=== PATIENT | male | born 1955 | race Caucasian/White ===

== ENCOUNTER 2018-09-05 17:19 | Emergency (ER) | payer BC ==
[2018-09-05 18:02] LABS: HEMATOCRIT 46.4 % (42.0-52.0); HEMOGLOBIN 14.8 gm/dl (14.0-18.0); MEAN CELL VOLUME 93.7 fl (81-97); MEAN CORPUSCULAR HEMOGLOBIN 29.9 pg (27-33); MEAN CORPUSCULAR HGB CONC 31.9 g/dl (32-36); MEAN PLATELET VOLUME 11.7 fl (7.4-10.4); PLATELET COUNT 249 K/uL (130-400); RED BLOOD COUNT 4.95 M/uL (4.40-5.70); WHITE BLOOD COUNT W/O DIFF 19.9 K/uL (4.2-12.2)
[2018-09-05 18:13] LABS: URINE APPEARANCE CLEAR; URINE BILIRUBIN NEGATIVE (NEGATIVE); URINE GLUCOSE (UA) NEGATIVE (NEGATIVE); URINE KETONE 15 mg/dL (NEGATIVE)
[2018-09-05 18:13] LABS: BLOOD UREA NITROGEN 9 mg/dL (8-23); CREATININE 0.9 mg/dL (0.7-1.2); EST GLOMERULAR FILTRATION RATE > 60 mL/min
[2018-09-05 18:14] LABS: LIPASE 14 U/L (13-60); TOTAL PROTEIN 7.9 g/dL (6.6-8.7)
[2018-09-05 18:14] LABS: URINE BLOOD TRACE-I (NEGATIVE); URINE LEUKOCYTE ESTERASE TRACE (NEGATIVE); URINE PROTEIN TRACE (NEGATIVE)
[2018-09-05 18:16] LABS: GLUCOSE,RANDOM 128 mg/dL (74-109)
[2018-09-05 18:18] LABS: ALT/SGPT 17 U/L (<41); BILIRUBIN,DIRECT 0.2 mg/dL (0-0.3)
[2018-09-05 18:19] LABS: ALBUMIN 4.1 g/dL (4.0-5.0); ALKALINE PHOSPHATASE 65 U/L (40-129); AST/SGOT 14 U/L (10.0-50.0)
[2018-09-05 18:21] LABS: URINE COLOR ORANGE
[2018-09-05 18:22] LABS: URINE EPITHELIAL CELLS NONE SEEN (FEW); URINE RBC 0 - 2 (NONE SEEN); URINE WBC 0 - 2 (0-2/hpf)
--- NOTE | 2018-09-05 19:00 | Emergency Department Record ---
History of Present Illness - General Chief Complaint: Abdominal Pain Stated Complaint: ABD PAIN Time Seen by Provider: 09/05/18 17:46 Source: Patient Mode of Arrival: Ambulatory Limitations: No limitations - History of Present Illness Initial Comments: pt has had ap since yesterday in the lower abdomen. he has no v/c/d. walking makes worse. he has not been to a dr in 7 years Complaint: Abdominal pain Onset/Timin -: Days(s) Location: LLQ, RLQ Radiation: None Quality: Sharp Consistency: Constant Improves With: Nothing Worsens With: Nothing Associated Symptoms: Chills, Nausea - Related Data Home Medications Medication Instructions Recorded Confirmed Last Taken No Home Med [NO HOME MEDS] 09/05/18 09/05/18 Unknown Allergies Allergy/AdvReac Type Severity Reaction Status Date / Time procaine [From Novocain] Allergy PT UNSURE Verified 09/05/18 17:42 OF REACTION Travel Screening - Travel/Exposure Within Last 30 Days Have you traveled within the last 30 days?: No Review of Systems Reviewed: No additional complaints except as noted below Constitutional: Reports: As per HPI. Denies: Chills, Fever, Malaise, Night sweats, Weakness, Weight change Eyes: Reports: As per HPI. Denies: Eye discharge, Eye pain, Photophobia, Vision change ENT: Reports: As per HPI. Denies: Congestion, Dental pain, Ear pain, Epistaxis, Hearing loss, Throat pain Respiratory: Reports: As per HPI. Denies: Cough, Dyspnea, Hemoptysis, Stridor, Wheezes Cardiovascular: Reports: As per HPI. Denies: Arrhythmia, Chest pain, Dyspnea on exertion, Edema, Murmurs, Orthopnea, Palpitations, Paroxysmal nocturnal dyspnea, Rheumatic Fever, Syncope Endocrine: Reports: As per HPI. Denies: Fatigue, Heat or cold intolerance, Polydipsia, Polyuria Gastrointestinal: Reports: As per HPI, Abdominal pain, Nausea. Denies: Constipation, Diarrhea, Hematemesis, Hematochezia, Melena, Vomiting Genitourinary: Reports: As per HPI. Denies: Dysuria, Frequency, Hematuria, Incontinence, Retention, Testicular pain, Testicular mass, Urgency Musculoskeletal: Reports: As per HPI. Denies: Arthralgia, Back pain, Gout, Joint swelling, Myalgia, Neck pain Skin: Reports: As per HPI. Denies: Bruising, Change in color, Change in hair/nails, Lesions, Pruritus, Rash Neurological: Reports: As per HPI. Denies: Abnormal gait, Confusion, Headache, Numbness, Paresthesias, Seizure, Tingling, Tremors, Vertigo, Weakness Psychiatric: Reports: As per HPI. Denies: Anxiety, Auditory hallucinations, Depression, Homicidal thoughts, Suicidal thoughts, Visual hallucinations Hematological/Lymphatic: Reports: As per HPI. Denies: Anemia, Blood Clots, Easy bleeding, Easy bruising, Swollen glands Past Medical History - SOCIAL HISTORY Smoking Status: Never smoker Alcohol Use: None Drug Use: None - RESPIRATORY Hx Respiratory Disorders: No - CARDIOVASCULAR Hx Cardio Disorders: No - NEURO Hx Neuro Disorders: No - GI Hx GI Disorders: No - Hx Genitourinary Disorders: No - ENDOCRINE Hx Endocrine Disorders: No - MUSCULOSKELETAL Hx Musculoskeletal Disorders: No - PSYCH Hx Psych Problems: No - HEMATOLOGY/ONCOLOGY Hx Hematology/Oncology Disorders: No Family Medical History Any Significant Family History?: Yes Hx Heart Disease: Grandparents Physical Exam - General General Appearance: Alert, Oriented x3, Cooperative, Mild distress - Head Head exam: Normal inspection - Eye Eye exam: Normal appearance, PERRL, EOMI Pupils: Normal accommodation - ENT ENT exam: Normal exam, Mucous membranes moist, Normal external ear exam, Normal orophraynx Ear exam: Normal external inspection. negative: External canal tenderness Nasal Exam: Normal inspection. negative: Discharge, Sinus tenderness Mouth exam: Normal external inspection, Tongue normal Teeth exam: Normal inspection. negative: Dental caries Throat exam: Normal inspection. negative: Tonsillar erythema, Tonsillar exudate - Neck Neck exam: Normal inspection, Full ROM. negative: Tenderness - Respiratory Respiratory exam: Normal lung sounds bilaterally. negative: Respiratory distress - Cardiovascular Cardiovascular Exam: Normal rhythm, Normal heart sounds, Tachycardia - GI/Abdominal GI/Abdominal exam: Soft, Normal bowel sounds, Tenderness (llq) - Rectal Rectal exam: Deferred - exam: Deferred - Extremities Extremities exam: Normal inspection, Full ROM, Normal capillary refill. negative: Tenderness - Back Back exam: Reports: Normal inspection, Full ROM. Denies: Muscle spasm, Rash noted, Tenderness - Neurological Neurological exam: Alert, CN II-XII intact, Normal gait, Oriented X3 - Psychiatric Psychiatric exam: Normal affect, Normal mood - Skin Skin exam: Dry, Intact, Normal color, Warm Course Vital Signs 09/05/18 17:35 Temperature 100.3 F H Pulse Rate 106 H Respiratory 20 Rate Blood Pressure 147/107 Pulse Ox 95 Medical Decision Making - Lab Data Result diagrams: 09/05/18 17:43 09/05/18 17:43 Lab Results 09/05/18 09/05/18 09/05/18 Range/Units 17:43 17:43 17:43 WBC 19.9 H (4.2-12.2) K/uL RBC 4.95 (4.40-5.70) M/uL Hgb 14.8 (14.0-18.0) gm/dl Hct 46.4 (42.0-52.0) % MCV 93.7 (81-97) fl MCH 29.9 (27-33) pg MCHC 31.9 L (32-36) g/dl RDW 13.0 (11.5-14.5) % Plt Count 249 (130-400) K/uL MPV 11.7 H (7.4-10.4) fl Neutrophils % 84.0 H (47-80) % Eosinophils % Not Reportable Basophils % Not Reportable Absolute Neutrophils Not Reportable Lymphocytes 9.0 L (16-45) % Monocytes 7.0 (0-9) % Eosinophil Count 1.0 (0-6) % Sodium 135 L (136-145) mmol/L Potassium 4.3 (3.4-4.5) mmol/L Chloride 96 L (98-107) mmol/L Carbon Dioxide 25.0 (22-29) mmol/L Anion Gap 14.0 (7-16) BUN 9 (8-23) mg/dL Creatinine 0.9 (0.7-1.2) mg/dL Estimated GFR > 60 mL/min Random Glucose 128 H (74-109) mg/dL Calcium 9.0 (8.8-10.2) mg/dL Total Bilirubin 1.00 (0.2-1.0) mg/dL Direct Bilirubin 0.2 (0-0.3) mg/dL AST 14 (10.0-50.0) U/L ALT 17 (<41) U/L Alkaline Phosphatase 65 (40-129) U/L Total Protein 7.9 (6.6-8.7) g/dL Albumin 4.1 (4.0-5.0) g/dL Lipase 14 (13-60) U/L PSA Screen 1.48 (0.0-4.1) ng/mL Urine Color Urine Appearance Urine pH (5.0-8.0) Ur Specific [place] (1.002-1.030) Urine Protein (NEGATIVE) Urine Glucose (UA) (NEGATIVE) Urine Ketones (NEGATIVE) Urine Blood (NEGATIVE) Urine Nitrite (NEGATIVE) Urine Bilirubin (NEGATIVE) Urine Urobilinogen (0.20 - 1.00) E.U./dL Ur Leukocyte Esterase (NEGATIVE) Urine RBC (NONE SEEN) Urine WBC (0-2/hpf) Ur Epithelial Cells (FEW) 09/05/18 Range/Units 18:09 WBC (4.2-12.2) K/uL RBC (4.40-5.70) M/uL Hgb (14.0-18.0) gm/dl Hct (42.0-52.0) % MCV (81-97) fl MCH (27-33) pg MCHC (32-36) g/dl RDW (11.5-14.5) % Plt Count (130-400) K/uL MPV (7.4-10.4) fl Neutrophils % (47-80) % Eosinophils % Basophils % Absolute Neutrophils Lymphocytes (16-45) % Monocytes (0-9) % Eosinophil Count (0-6) % Sodium (136-145) mmol/L Potassium (3.4-4.5) mmol/L Chloride (98-107) mmol/L Carbon Dioxide (22-29) mmol/L Anion Gap (7-16) BUN (8-23) mg/dL Creatinine (0.7-1.2) mg/dL Estimated GFR mL/min Random Glucose (74-109) mg/dL Calcium (8.8-10.2) mg/dL Total Bilirubin (0.2-1.0) mg/dL Direct Bilirubin (0-0.3) mg/dL AST (10.0-50.0) U/L ALT (<41) U/L Alkaline Phosphatase (40-129) U/L Total Protein (6.6-8.7) g/dL Albumin (4.0-5.0) g/dL Lipase (13-60) U/L PSA Screen (0.0-4.1) ng/mL Urine Color [place] H Urine Appearance Clear Urine pH 6.0 (5.0-8.0) Ur Specific [place] 1.015 (1.002-1.030) Urine Protein Trace H (NEGATIVE) Urine Glucose (UA) Negative (NEGATIVE) Urine Ketones 15 mg/dl H (NEGATIVE) Urine Blood Trace-i (NEGATIVE) Urine Nitrite (NEGATIVE) Urine Bilirubin Negative (NEGATIVE) Urine Urobilinogen 2.0 H (0.20 - 1.00) E.U./dL Ur Leukocyte Esterase Trace H (NEGATIVE) Urine RBC 0 - 2 (NONE SEEN) Urine WBC 0 - 2 (0-2/hpf) Ur Epithelial Cells None seen (FEW) Disposition Disposition: Transfer Clinical Impression: Diverticulitis Disposition: Acute Care Hospital Transfer Transfer To: [facility] Reason For Transfer: needs surgeon Accepting Physician: colton isaacs and irais Time Discussed w/Accepting Physician: 19:35 Forms: Patient Portal Access Quality - Quality Measures Quality Measures: N/A - Blood Pressure Screening Does Patient Have Any of the Following: No Blood Pressure Classification: Hypertensive Reading Systolic Measurement: 147 Diastolic Measurement: 107 Screening for High Blood Pressure: < First Hypertensive BP, F/U Documented > [G8950] First Hypertensive Follow-up Interventions: Follow-up with rescreen GT 1 day and LT 4 weeks.
[2018-09-05] MEDS ORDERED: METRONIDAZOLE IVPB 500 MG/100 ML BAG IVPB ONE (19:14)
[2018-09-05] MEDS ORDERED: CIPROFLOXACIN LACTATE/D5W 400 MG/200 ML BAG IVPB ONE (19:14)
[2018-09-05] MEDS ORDERED: ONDANSETRON HCL IV 4 MG/2 ML VIAL IVP ONE (19:23)
[2018-09-05] MEDS ORDERED: HYDROMORPHONE HCL 2 MG/ML VIAL IVP ONE (19:23)
--- NOTE | 2018-09-07 05:55 | CT SCAN REPORT ---
EXAM: CT SCAN ABDOMEN/PELVIS WO CONTRAST HISTORY: LEFT LOWER QUADRANT ABDOMINAL PAIN. TECHNIQUE: Standard CT imaging of the abdomen and pelvis without contrast. COMPARISON: None. FINDINGS: Minimal atelectasis at the lung bases. There is a 4 mm fissural nodule at the right lung base. The liver is diffusely hypodense suggesting fatty infiltration. No calcified gallstones. The common bile duct is not dilated. The pancreas, spleen, and adrenal glands are unremarkable. No nephrolithiasis or hydronephrosis. There is colonic diverticulosis with marked pericolonic fat stranding at the sigmoid colon with underlying sigmoid wall thickening suggesting acute diverticulitis. Evaluation of the thickened sigmoid colon is suboptimal without intravenous contrast. No discrete free fluid or free air. No small bowel dilatation. The appendix is normal. Multiple nonenlarged retroperitoneal lymph nodes. IMPRESSION: 1. EXTENSIVE INFLAMMATION WIT SIGMOID WALL THICKENING LIKELY ON THE BASIS OF ACUTE DIVERTICULITIS. NO GROSS PERFORATION. 2. A 4 MM FISSURAL NODULE AT THE RIGHT LUNG BASE, WHICH COULD BE FOLLOWED WITH LOW-DOSE CHEST CT IN 12 MONTHS IF THE PATIENT IS HIGH RISK SUCH WITH THE HISTORY OF SMOKING. 3. FATTY INFILTRATION OF THE LIVER. 4. SMALL FAT-CONTAINING UMBILICAL HERNIA. JOB NUMBER: [id number] [facility]
== END 2018-09-05 22:25 | disposition short-term general hospital (02) ==
LOC: ER 17:19
DX: K57.32 Diverticulitis of large intestine without perforation or abscess without bleeding (principal)
CPT/HCPCS: 74176; 80048; 80076; 81001; 83690; 85027; 96365; 96366; 96375; 99285; G0103; J2405

== ENCOUNTER 2019-01-01 09:19 | Day surgery (SDC) | payer BC ==
[2019-01-01] MEDS ORDERED: LIDOCAINE 2% MDV (20MG/ML) 20ML VIAL IV ONE (09:20)
[2019-01-01] MEDS ORDERED: PROPOFOL 10 MG/ML VIAL IV ONE (09:20)
--- NOTE | 2019-01-02 06:02 | Operative Note ---
OPERATION: COLONOSCOPY to the cecum and terminal ileum. INDICATION: Colorectal cancer screening. This is the patient's first colonoscopy. ANESTHESIA: Intravenous sedation was administered by the department of anesthesiology and included Diprivan titrated to effect. PROCEDURE: Following informed consent from this alert individual including a discussion of the risks and benefits of the procedure and an opportunity for the patient to ask questions, the patient was in the left lateral decubitus position. A digital rectal examination was performed. No abnormalities were noted. Following this, the Olympus [id number] video colonoscope was inserted into the rectum without resistance. The rectal mucosa had a normal appearance with normal folds and distensibility. The sigmoid colon demonstrated scattered diverticula which extended up into the left colon, into the descending colon as well. The colonoscope was advanced into the right colon with some difficulty due to some tortuosity of the colon. With abdominal pressure support, the cecum was reached by identifying the appendiceal orifice and ultimately entering the terminal ileum. The terminal ileum appeared to be endoscopically normal as did the cecum. The colon preparation overall was good. From this point, the colonoscope was then slowly withdrawn. It was difficult to well evaluate the proximal ascending colon due to redundancy. However, as best visualized, no mucosal changes were appreciated in the entire right colon. The transverse colon was normal. Descending colon and sigmoid colon demonstrated diverticulosis. Retroflexion in the rectum was then endoscopically unremarkable. The instrument was straightened and removed. The patient tolerated the procedure well and was returned to the recovery area in stable condition. IMPRESSION: 1. Somewhat tortuous colon. 2. Normal terminal ileum. 3. Left colonic diverticulosis. 4. No polyps noted. RECOMMENDATIONS: The patient was advised to have recheck colonoscopy in 10 years' time or sooner if problems arise. Followup will otherwise be with Ike Norman MD. As always, thank you for allowing me to participate in the care of your patient. SONU
== END 2019-01-01 11:15 | disposition home or self-care (01) ==
LOC: HOP 09:19
PROVIDERS: ATTEND Internal Medicine Gastroenterology
DX: Z12.11 Encounter for screening for malignant neoplasm of colon (principal); K57.30 Diverticulosis of large intestine without perforation or abscess without bleeding; Q43.8 Other specified congenital malformations of intestine